=== PATIENT | female | born 1990 | race Caucasian/White ===

== ENCOUNTER 2023-12-29 15:04 | Emergency (ER) | payer OTHER ==
[~2023-12-29] VITALS: Ht 167.6 cm; Wt 64.9 kg
[2023-12-29 15:19] VITALS: BP 106/65; PULSE 95; RESP 19; TEMP 98.3; O2SAT 97
[2023-12-29] MEDS: LORATADINE 10 MG TAB PO ONE (17:21)
[2023-12-29] MEDS ORDERED: LORA10TA19 PO (18:17)
[2023-12-29] MEDS ORDERED: EPIN1KIT31 IM (18:21)
== END 2023-12-29 18:27 | disposition home or self-care (01) ==
LOC: MED 15:04
DX: T78.40XA Allergy, unspecified, initial encounter (principal); Z79.899 Other long term (current) drug therapy; X58.XXXA Exposure to other specified factors, initial encounter
CPT/HCPCS: 99282